=== PATIENT | female | born 1975 | race Caucasian/White ===

== ENCOUNTER 2017-02-16 02:16 | Emergency (ER) | payer BC ==
[2017-02-16 03:39] LABS: HEMOGLOBIN 13.4 gm/dl (12.3-15.3); RED BLOOD COUNT 4.41 M/UL (4.00-5.10); WHITE BLOOD COUNT 13.3 K/UL (4.5-11.0)
[2017-02-16 04:00] LABS: BUN/CREATININE RATIO 16 (0-10)
== END 2017-02-16 06:18 | disposition home or self-care (01) ==
LOC: ER1 02:16
PROVIDERS: Physician Assistant
DX: N83.202 Unspecified ovarian cyst, left side (principal); N39.0 Urinary tract infection, site not specified; Z88.0 Allergy status to penicillin; Z88.1 Allergy status to other antibiotic agents; Z90.49 Acquired absence of other specified parts of digestive tract
CPT/HCPCS: 36415; 80053; 81001; 83690; 84703; 85025; 87086; 96361; 96372; 96374; 96375; 99284; J0500; J1885; J2405; J2550; J7050; Q9962